=== PATIENT | male | born 1985 | race Caucasian/White ===

== ENCOUNTER 2016-12-12 14:27 | Emergency (ER) | payer SELFPAY ==
[2016-03-04 10:42] VITALS: BP 122/72
--- NOTE | 2016-12-12 15:11 | ED Physician Documentation ---
Lower Extremity Problem - HISTORIAN Historian: patient - HPI Chief Complaint: Lower Extremity Injury Location of Injury: R ankle Timing: still present Recent Injury: Yes (slight strain 4 days ago) Where: work Quality: pain, swelling, tenderness Exacerbated By: walking Relieved By: rest Associated Symptoms: denies: chest pain, shortness of breath, rapid heart rate Further Comments: yes (patient states about 4 days ago while at work he twisted ankle, felt some slight pain in the area but was able to walk on it. Over the last 48 hours lower leg has become more swollen and tender. No ecchymosis noted. Patient is concerned that he tore a muscle or something else.) - ROS CONST: no problems. denies: fever - PAST HX Past History: none PE Risk Factors: none Surgeries/Procedures: none Allergies/Adverse Reactions: Allergies Allergy/AdvReac Type Severity Reaction Status Date / Time No Known Allergies Allergy Verified 03/04/16 08:53 Home Medications: Ambulatory Orders Medication Instructions Recorded Tramadol HCl [Ultram] 50 mg PO Q6 PRN #20 tablet 12/12/16 - SOCIAL HX Smoking History: less than 1 pack/day (1/2 ppd) Alcohol Use: none - FAMILY HX Family History: none - VITAL SIGNS Vital Signs: Vital Signs Temp Pulse Resp BP Pulse Ox 122/72 03/04/16 10:38 - REVIEWED ASSESSMENTS Nursing Assessment Reviewed: Yes Vitals Reviewed: Yes ED Results Lab/Radiology - Orders Orders: ED Orders Category Date Time Status TIBIA & FIBULA 2 VIEW [RAD] Stat Exams 12/12/16 Completed Ketorolac Tromethamine [Toradol] Med 12/12/16 17:12 Discontinued 60 mg IM NOW ONE Lower Extremity Problem - EXAM General Appearance: mild distress Legs: right: pain (anterior lower 1/3 of lower leg), soft tissue tenderness ( anterior lower leg), swelling (lower 1/3 of leg, calf circum at 18cm above med malleolus 31cm bilat), left: non-tender, normal inspection, bilateral: normal range of motion, no evidence of injury, N/A: ecchymosis (none), limited range of motion (none) Knees: bilateral: non-tender, normal inspection, normal range of motion, no evidence of injury Ankle: right: pain (lateral aspect), swelling (mild lateral aspect), left: non- tender, normal inspection, normal range of motion, no evidence of injury, N/A: joint effusion (none), limited range of motion (none) Foot: bilateral foot: non-tender, normal inspection, normal range of motion, no evidence of injury Neuro/Tendon: normal sensation, normal motor functions, normal tendon functions RESPIRATORY: no resp distress, chest non-tender, breath sounds normal. No: wheezes, rales CVS: reg rate & rhythm, heart sounds normal, equal pulses, no murmur, no gallop NEURO/PSYCH: oriented X3, CN's nml as tested SKIN: warm/dry, normal color Discharge Clincal Impression: Muscle strain of lower leg Prescriptions: Tramadol HCl [Ultram] 50 mg PO Q6 PRN #20 tablet PRN Reason: Pain Referrals: Primary Doctor,No [Primary Care Provider] - 2 Days Additional Instructions: Keep leg elevated, warm compress to the leg. External compression to your leg. Take Aleve 220mg tablets, 2 twice a day with food. Take tramadol as needed for several pain. Home Medications: Ambulatory Orders Tramadol HCl [Ultram] 50 mg PO Q6 PRN #20 tablet 12/12/16 Condition: Stable Disposition: 01 HOME, SELF-CARE Decision to Admit: NO Date of Decison to Admit: 12/12/16 Decision Time: 17:05
[2016-12-12] MEDS ORDERED: KETOROLAC TROMETHAMINE 60 MG/2 ML VIAL IM ONE (17:12)
--- NOTE | 2016-12-12 17:33 | Diagnostic Imaging Report ---
[facility] [id number] [facility].[address] [id number] Report Submission Date: Dec 12, 2016 3:36:36 PM CDT Patient Study Name: DENVER CORTEZ Date: Dec 12, 2016 3:17:06 PM CDT Modality Type: CR Gender: M Description: LOWER EXTREMITY : 83 Institution: [facility] Physician: OSEAS BRUSH - ER Examination: Plain film tibia/fibula History: Trauma Comparison exams: None available Findings: 3 views of the tibia fibula demonstrates normal cortical margins. No evidence for fracture line. No soft tissue abnormality. Impression: No osseous abnormality. Electronically signed on Dec 12, 2016 3:36:36 PM CDT by: Twin BRUMFIELD
== END 2016-12-12 17:25 | disposition home or self-care (01) ==
LOC: ED 14:27
DX: S86.911A Strain of unspecified muscle(s) and tendon(s) at lower leg level, right leg, initial encounter (principal); X58.XXXA Exposure to other specified factors, initial encounter; Y93.9 Activity, unspecified; Y99.9 Unspecified external cause status
CPT/HCPCS: 73590; 96372; 99283

== ENCOUNTER 2017-05-07 14:42 | Emergency (ER) | payer SELFPAY ==
[2017-05-07 15:17] LABS: BASOPHILS % 0.7 (0.0-1.5); EOSINOPHILS % 4.5 % (0.0-6.8); MEAN CORPUSCULAR HEMOGLOBIN 30.8 pg (28.0-34.0); MEAN CORPUSCULAR VOLUME 91.9 fl (80.0-100.0); MONOCYTES % 7.7 % (0.0-11.0); NEUTROPHILS # 4.8 # k/uL (1.4-7.7)
[2017-05-07 15:23] LABS: APPEARANCE,URINE Clear (CLEAR); COLOR,URINE Yellow (YELLOW); OCCULT BLOOD,URINE Negative (NEGATIVE)
[2017-05-07 15:26] LABS: AMPHETAMINE NEGATIVE ng/mL (<1000); BARBITURATES NEGATIVE ng/mL (<300); CANNABINOIDS NEGATIVE ng/mL (< 50); COCAINE NEGATIVE ng/mL (<300); METHAMPHETAMINE NEGATIVE ng/mL (<1000); METHYLENEDIOXYMETHAMPHETAMINE NEGATIVE ng/mL (<500); OPIATES NEGATIVE ng/mL (<300)
--- NOTE | 2017-05-07 15:33 | ED Physician Documentation ---
Psychological Disorders - HISTORIAN Historian: patient - HPI Stated Complaint: "Deferred" Chief Complaint: Psychological Disorder Further Comments: yes (31 year old male patient presents with complaint of hearing voices, patient reports the voices are telling him to hurt himself. Patient reported being out of his medication 1 year to nursing, reports being out of medication for 4 days to me. Patient [place] [facility] [place], states he was discharged last Sunday. Reports being homeless. Called his Mom to take him to [facility], but she refused.) - Associated Symptoms Symptoms: hallucinating (auditory) Suicidal: suicidal thoughts Ingestion: wanted to "escape" - ROS CONST: none NEURO/PSYCH: none EYES/ENT: none CVS/RESP: none GI/: denies: nausea, vomiting MS/SKIN/LYMPH: denies: joint pain, leg swelling, rash Comment: Patient is a very poor historian - PAST HX Psychiatric problems: psychiatric problems, schizophrenia Allergies/Adverse Reactions: Allergies Allergy/AdvReac Type Severity Reaction Status Date / Time No Known Allergies Allergy Verified 05/07/17 15:35 Home Medications: Ambulatory Orders Medication Instructions Recorded Citalopram Hydrobromide [Celexa] 20 mg PO QD 05/07/17 Quetiapine Fumarate [Seroquel] 200 mg PO 05/07/17 clonazePAM [Klonopin] 1 mg PO BID 05/07/17 - Social HX Smoking History: non-smoker Drug Use: denies: none - Family HX Family HX: mental illness - VITAL SIGNS Vital Signs: Vital Signs Temp Pulse Resp BP Pulse Ox 97.1 F L 80 18 148/89 99 05/07/17 14:45 05/07/17 14:45 05/07/17 14:45 05/07/17 14:45 05/07/17 14:45 - REVIEWED ASSESSMENTS Nursing Assessment Reviewed: Yes Vitals Reviewed: Yes Progress - Progress Progress: Medically cleared. Consult with aids social worker for inpatient placement. Patient remains line of site for suicide precautions. 173 radiology services manager still working on bed placement. 1829 Patient accepted by [facility] at [facility], patient agrees to voluntary commitment. ED Results Lab/Radiology - Lab Results Lab Results: Lab Results 05/07/17 05/07/17 05/07/17 15:05 15:05 15:05 WBC RBC Hgb Hct MCV MCH MCHC RDW Plt Count Neut % (Auto) Lymph % (Auto) [place] % (Auto) Eos % (Auto) Baso % (Auto) Neut # (Auto) Lymph # (Auto) [place] # (Auto) Eos # (Auto) Baso # (Auto) Reactive Lymphs % Reactive Lymphs # Sodium 135 mmol/L L mmol/L (136-145) Potassium 4.2 mmol/L mmol/L (3.5-5.1) Chloride 101 mmol/L mmol/L (98-107) Carbon Dioxide 28 mmol/L mmol/L (22-30) BUN 11 mg/dL mg/dL (9-20) Creatinine 1.00 mg/dL mg/dL (0.66-1.25) Estimated Creat Clear 102 Est GFR ( Amer) > 60 (60 - ) Est GFR (Non-Af Amer) > 60 (60 - ) Glucose 95 mg/dL mg/dL (74-106) Calcium 8.5 mg/dL mg/dL (8.4-10.2) Total Bilirubin 0.8 mg/dL mg/dL (0.2-1.3) AST 25 U/L U/L (15-46) ALT 36 U/L U/L (13-69) Alkaline Phosphatase 59 U/L U/L (38-126) Total Protein 7.0 g/dL g/dL (6.3-8.2) Albumin 3.9 g/dL g/dL (3.5-5.0) Urine Color Yellow (YELLOW) Urine Appearance Clear (CLEAR) Urine pH 7.0 (5.0 - 8.0) Ur Specific [place] 1.020 (1.010-1.030) Urine Protein Negative mg/dL mg/dL (NEGATIVE) Urine Ketones Negative mg/dL mg/dL (NEGATIVE) Urine Occult Blood Negative (NEGATIVE) Urine Nitrite Negative (NEGATIVE) Urine Bilirubin Negative (NEGATIVE) Urine Urobilinogen 2.0 Eu H Eu (0.2-1.0) Ur Leukocyte Esterase Trace (NEGATIVE) Urine RBC 0-2 (0-2 HPF) Urine WBC 0-2 (0-5 HPF) Amorphous Sediment Few H (NEGATIVE) Urine Glucose Negative mg/dL mg/dL (NEGATIVE) Opiates Screen Negative ng/mL ng/mL (<300) Oxycodone Screen Negative ng/mL ng/mL (<100) Methadone Screen Negative ng/mL ng/mL (<300) POC Urine Barbiturates Negative ng/mL ng/mL (<300) Tricyclic Antidepress Negative ng/mL ng/mL (<300) Phencyclidine Screen Negative ng/mL ng/mL (<25) Amphetamines Screen Negative ng/mL ng/mL (<1000) POC Ur Methamphetamine Negative ng/mL ng/mL (<1000) MDMA Negative ng/mL ng/mL (<500) Benzodiazepines Screen Negative ng/mL ng/mL (<300) Cocaine Screen Negative ng/mL ng/mL (<300) U Cannabinoids Screen Negative ng/mL ng/mL (< 50) Ethyl Alcohol < 10.0 mg/dL mg/dL (0.0-10.0) 05/07/17 15:05 WBC 8.90 K/ul K/ul (4.00-12.00) RBC 4.85 M/ul M/ul (3.90-5.20) Hgb 14.9 g/dL g/dL (12.0-18.0) Hct 44.6 % % (37.0-53.0) MCV 91.9 fl fl (80.0-100.0) MCH 30.8 pg pg (28.0-34.0) MCHC 33.5 g/dL g/dL (30.0-36.0) RDW 12.1 % % (11.3-14.3) Plt Count 232 K/mm3 K/mm3 (130-400) Neut % (Auto) 54.6 % % (39.0-79.0) Lymph % (Auto) 30.0 % % (16.0-50.0) [place] % (Auto) 7.7 % % (0.0-11.0) Eos % (Auto) 4.5 % % (0.0-6.8) Baso % (Auto) 0.7 (0.0-1.5) Neut # (Auto) 4.8 # k/uL # k/uL (1.4-7.7) Lymph # (Auto) 2.7 # k/uL # k/uL (0.6-4.0) [place] # (Auto) 0.7 # k/uL # k/uL (0.0-0.9) Eos # (Auto) 0.4 # k/uL # k/uL (0.0-0.6) Baso # (Auto) 0.1 # k/uL # k/uL (0.0-0.5) Reactive Lymphs % 2.4 % % (0.0-5.0) Reactive Lymphs # 0.2 # k/uL # k/uL (0.0-0.8) Sodium Potassium Chloride Carbon Dioxide BUN Creatinine Estimated Creat Clear Est GFR ( Amer) Est GFR (Non-Af Amer) Glucose Calcium Total Bilirubin AST ALT Alkaline Phosphatase Total Protein Albumin Urine Color Urine Appearance Urine pH Ur Specific [place] Urine Protein Urine Ketones Urine Occult Blood Urine Nitrite Urine Bilirubin Urine Urobilinogen Ur Leukocyte Esterase Urine RBC Urine WBC Amorphous Sediment Urine Glucose Opiates Screen Oxycodone Screen Methadone Screen POC Urine Barbiturates Tricyclic Antidepress Phencyclidine Screen Amphetamines Screen POC Ur Methamphetamine MDMA Benzodiazepines Screen Cocaine Screen U Cannabinoids Screen Ethyl Alcohol - Orders Orders: ED Orders Category Date Time Status ALCOHOL MEDICAL USE ONLY Stat Lab 05/07/17 15:05 Completed CBC/PLATELET/DIFF Stat Lab 05/07/17 15:05 Completed CMP Stat Lab 05/07/17 15:05 Completed UA W/MICRO IF INDICATED Stat Lab 05/07/17 15:05 Completed Urine drug screen [DRUG SCREEN URINE MEDICAL ONLY] Stat Lab 05/07/17 15:05 Completed LORazepam [Ativan] Med 05/07/17 18:32 Once 1 mg PO NOW ONE EKG WITH COMPARISON Stat Ther 05/07/17 14:53 Completed Psych Physical Exam - Physical Exam General Appearance: moderate distress, anxious Eyes: PERRL, EOM's intact Suicide Attempts: denies Orientation: nml x3 Cranial Nerves: CN's intact as tested Sensory, Motor: nml motor response, nml sensory response, nml reflexes, nml gait Neck/Back: normal inspection, thyroid normal Respiratory: no resp distress, chest non-tender, breath sounds normal CVS: reg rate & rhythm, heart sounds normal, equal pulses, no murmur, no gallop , PMI nml, no JVD, no friction rub, 24 Abdomen: non-tender, no organomegaly, nml bowel sounds, no distention Skin: normal color, warm/dry, NR, INT, PAL, DR Extremities: non-tender, normal range of motion, no evidence of injury, no edema , J, [employer] Discharge Clincal Impression: Auditory hallucination, Suicidal thoughts Referrals: Primary Doctor,No [Primary Care Provider] - 2 Days Condition: Stable Disposition: 02 XFER [id number] HOSP Decision to Admit: NO Decision Time: 18:34
[2017-05-07 15:34] LABS: AMORPHOUS SEDIMENT,UR FEW (NEGATIVE)
[2017-05-07 15:36] LABS: eGFR (African) > 60; eGFR (Non-African) > 60
[2017-05-07] MEDS ORDERED: LORazepam 1 MG TABLET PO ONE (18:32)
[2017-05-07 20:45] VITALS: BP 118/68
== END 2017-05-07 20:42 | disposition short-term general hospital (02) ==
LOC: ED 14:42
DX: R44.0 Auditory hallucinations (principal); R45.851 Suicidal ideations
CPT/HCPCS: 36415; 80053; 80320; 80377; 81002; 85025; 99284; G0480; G0481